=== PATIENT | female | born 1960 | race Caucasian/White ===

== ENCOUNTER 2018-03-19 14:06 | Inpatient (IN) ==
--- NOTE | 2018-03-19 14:20 | Emergency Department Note ---
Disposition Clinical Impression: Patellar fracture Qualifiers: Encounter type: initial encounter Fracture type: closed Fracture morphology: transverse Fracture alignment: nondisplaced Laterality: left Qualified Code(s): S82.035A - Nondisplaced transverse fracture of left patella, initial encounter for closed fracture Finger fracture, right Qualifiers: Encounter type: initial encounter Finger: little finger Fracture type: closed Phalanx: distal Fracture alignment: nondisplaced Qualified Code(s): S62.666A - Nondisplaced fracture of distal phalanx of right little finger, initial encounter for closed fracture Disposition: Admitted As Inpatient Condition: Good Time of Disposition: 17:05 General Adult HPI - General Stated complaint: Fall Lt Pain Time Seen by Provider: 03/19/18 14:08 Nursing Notes Reviewed: Yes Vital Signs Reviewed: Yes - History of Present Illness HPI Narrative: 57-year-old female presents emergency department with concern for fall. Patient slipped on ice and fell on her right wrist and hand and injured her left knee as well. Patient reports that she defecated on herself while she was lying on the pavement. She denies any new back pain. She does have chronic back pain. She states that she did not lose continence or stool. She reports that instead, it was because she could not get up with the pain in her left knee. Denies hitting her head. Denies any being on blood thinning medications. Denies any loss consciousness. - Related Data Home Medications Medication Instructions Recorded Confirmed Acetaminophen/Butalbital/Caffe 1 each PO Q6HR PRN 03/19/18 03/19/18 [Fioricet] Aspirin [Adult Aspirin] 81 mg PO DAILY 03/19/18 03/19/18 Escitalopram [Lexapro] 20 mg PO DAILY 03/19/18 03/19/18 Melatonin 5 mg PO HS 03/19/18 03/19/18 Ranitidine HCl [Zantac 75] 75 mg PO DAILY 03/19/18 03/19/18 Trimethoprim 100 mg PO DAILY 03/19/18 03/19/18 clonazePAM [Klonopin] 0.5 mg PO DAILY 03/19/18 03/19/18 Allergies Allergy/AdvReac Type Severity Reaction Status Date / Time Sulfa (Sulfonamide Allergy Rash Verified 03/19/18 20:24 Antibiotics) All systems ED: reviewed and negative except as stated. 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 Absent: respiratory distress, accessory muscle use - Cardiovascular Cardiovascular exam: Present: regular rate, normal rhythm, normal heart sounds - Abdominal Exam Abdominal exam: Present: soft, Non-Tender. Absent: distention, guarding, rebound, rigidity - Extremities Exam Extremities exam: Present: other (Right wrist has some tenderness to palpation on anterior aspect. (She has tenderness to palpation along the distal phalanx of the right fifth digit, neurovascular intact. On the left knee, there is tenderness to palpation along the patella. Neurovascular intact left lower extremity patient too uncomfortable to range.) - Back Exam Back exam: Present: full ROM. Absent: tenderness Course Vital Signs Temperature 98.3 F 03/19/18 14:19 Pulse Rate 79 03/19/18 14:19 Respiratory Rate 17 03/19/18 14:19 Blood Pressure 113/59 03/19/18 14:19 O2 Sat by Pulse Oximetry 100 03/19/18 14:19 Temperature 98.8 F 03/20/18 07:38 Pulse Rate 65 03/20/18 07:38 Respiratory Rate 16 03/20/18 07:38 Blood Pressure 111/69 03/20/18 07:38 O2 Sat by Pulse Oximetry 98 03/20/18 07:38 Oxygen Delivery Oxygen Delivery Room Air Medical Decision Making - MDM Narrative Medical decision making narrative: 57-year-old female presents emergency department after suffering a falling on ice today. Patient appears uncomfortable physical exam. We did provide her with pain medication. We did obtain plain films of the right wrist, right elbow, right fifth digit. Finger x-ray revealed nondisplaced fracture of the distal phalanx of the fifth digit. Patient was placed in a splint. Knee x-ray revealed mildly displaced acute transverse fracture across the mid left patella. Patient placed in knee immobilizer for this injury. I discussed discharge home versus admission to the hospital for pain management. Patient family requested that she stay in the hospital. We did attempt to have patient ambulate using crutches, but she was unable to do this. Her sister was very concerned that she has a very low pain tolerance and will not be able to tolerate this injury at home. Patient admitted to the hospitalist. She is to follow-up with orthopedic surgery on an outpatient basis. Finger X-Ray 03/19/18 00:00 IMPRESSION: 1. Nondisplaced fracture of the distal phalange of the 5th digit 2. No dislocation. No additional fracture identified. D/ / Paco Estrada MD / Paco Estrada MD Interpreting Provider: Paco Estrada MD Elbow X-Ray 03/19/18 14:20 IMPRESSION: No acute osseous abnormality. D/ / Paco Estrada MD / Paco Estrada MD Interpreting Provider: Paco Estrada MD Knee X-Ray 03/19/18 14:20 IMPRESSION: Mildly displaced acute transverse fracture across the mid left patella. D/ / Chung Azul / Chung Azul Interpreting Provider: Chung Azul Wrist X-Ray 03/19/18 14:20 IMPRESSION: 1. Nondisplaced fracture of the distal phalange of the 5th digit 2. No dislocation. No additional fracture identified. D/ / Paco Estrada MD / Paco Estrada MD Interpreting Provider: Paco Estrada MD Pelvis X-Ray 03/19/18 14:54 IMPRESSION: No acute osseous abnormality of the pelvis. D/ / Yosef Singh MD / Yosef Singh MD Interpreting Provider: Yosef Singh MD - Lab Data Result diagrams: 03/20/18 04:07 03/20/18 04:07 Attestation Statement - Attestation Attestation: I, Melvin Beard, examined this patient and my medical decision-making was reviewed with the BILINGUAL INTERPRETER/PA/Advanced Practice Nurse/Resident Physician. I agree with the documented findings, disposition and treatment plan as described except to the extent set forth below. 57 yo female presents with L knee pain. Pt reports she slipped and hit her L knee and R wrist. Pt denies fever, chills, cp, sob, palpitations. denies hitting her head or having LOC. unable to ambulate afterwards secondary to pain in knee. XR shows patellar fracture of L knee and R fifth finger. Patient did not receive a CT of her head because she denies hitting it or having loss of consciousness. She denied near syncopal symptoms. She was given multiple pain medications emergency department however she continued to have severe pain and was unable to ambulate. Patient will be admitted for pain control and placed in a rehabilitation facility
[2018-03-19] MEDS ORDERED: *HR* Morphine Immed Rel 30 MG TABLET PO STA (14:42)
[2018-03-19] MEDS ORDERED: *HR* FentaNYL (PF) 100 MCG/2 ML VIAL IVP ONE (18:24)
[2018-03-19] MEDS ORDERED: *HR* Heparin 5,000 UNIT/ML VIAL SQ ONE (22:07)
[2018-03-19] MEDS ORDERED: Acetaminophen 325 MG TABLET PO PRN (23:35)
[2018-03-19] MEDS ORDERED: Naloxone 0.4 MG/ML INJ IVP PRN (23:35)
[2018-03-19] MEDS ORDERED: *HR* HYDROcodone/Acet 5/325 mg TABLET PO PRN (23:35)
[2018-03-19] MEDS ORDERED: Acetaminophen/Butalbital/CaffeineTABLET PO PRN (23:37)
--- NOTE | 2018-03-20 02:18 | Internal Med History&Physical ---
Date of Encounter: 03/20/18 Time of Encounter: 23:00 Internal Medicine - H&P: HPI Chief complaint: s/p fall; knee injury Admitted From: Emergency Dept Plans for Post Hospital Care: Home History of present illness: Ms. Norwood is a 57 year old female who presents to the ER today with complaints of left knee pain and finger injury of her right hand. She apparently slipped and fell on the ice and landed on her knee and hand, injuring herself and fracturing her left knee. She was placed in a left knee immobilizer and admitted to hospitalist service for pain control and therapy assessment. Upon my assessment of the patient, she is lying in bed comfortably. She and her sister confirmed the above history. She denies any syncope, lightheadedness, dizziness, or chest pain. She was preparing to go to work when she went outside and slipped on the ice, sustaining her injury. She could not bear weight initially and has significant pain in her knee. She therefore was admitted. She denies any chronic health problems other than her anxiety, GERD, and recurrent UTI. Past Med Surg Social Fam HX - Past Medical History Attestation: Yes The following information was validated with the patient. Source: patient, obtained from family Medical history: GERD Additional medical history: recurrent UTI Psychiatric history: anxiety, depression - Past Surgical History Surgical History: , hysterectomy - Social History Smoking Status: Never smoker Smokeless Tobacco Status: No Alcohol use: none Drug use: none Occupational status: employed Current living situation: Home - Independent Activity Level: Independent ambulation Recent Out of Country Travel Within the Last 8 Weeks: No - Family History Mother Living Status: Cause of : cancer Hx Family Respiratory Disorders: Yes (asthma, COPD) Hx Family Cancer: Yes Father Living Status: Cause of : heart attack Hx Family Cardiac Disorders: Yes Sister Living Status: Still Living Hx Family Cancer: Yes Hx Family Musculoskeletal Disorders: Yes (DVT) Internal Medicine - H&P: Meds Acetaminophen/Butalbital/Caffe [Fioricet] 1 each PO Q6HR PRN 03/19/18 [History] Aspirin [Adult Aspirin] 81 mg PO DAILY 03/19/18 [History] Escitalopram [Lexapro] 20 mg PO DAILY 03/19/18 [History] Melatonin 5 mg PO HS 03/19/18 [History] Ranitidine HCl [Zantac 75] 75 mg PO DAILY 03/19/18 [History] Trimethoprim 100 mg PO DAILY 03/19/18 [History] clonazePAM [Klonopin] 0.5 mg PO DAILY 03/19/18 [History] Allergy/AdvReac Type Severity Reaction Status Date / Time Sulfa (Sulfonamide Allergy Rash Verified 03/19/18 20:24 Antibiotics) - Constitutional Constitutional: no chills, no fever(s), no weakness - EENT Eyes: no blurry vision, no change in vision Nose, mouth and throat: no nasal congestion, no sore throat - Cardiovascular Cardiovascular ROS IM: no chest pain, no diaphoresis, no dyspnea, no dyspnea on exertion, no irregular heart rhythm, no lightheadedness, no palpitations, no syncope - Respiratory Respiratory: no cough, no chest congestion - Gastrointestinal Gastrointestinal: no abdominal pain, no diarrhea, no vomiting - Genitourinary Genitourinary: no dysuria, no flank pain, no hematuria - Musculoskeletal Musculoskeletal ROS IM: arthralgias, joint swelling - Integumentary Integumentary IM: no rash, no jaundice - Neurological Neurological ROS: no dizziness, no focal weakness, no frequent falls, no headache(s) - Psychiatric Psychiatric: no anxiety, no depression - Endocrine Endocrine IM: no polydipsia, no polyuria - Allergic/Immunologic Allergic/Immunologic: no GI upset with certain foods - Constitutional Vitals: Temp Pulse Resp BP Pulse Ox 97.6 F 68 16 113/66 100 03/19/18 23:36 03/19/18 23:36 03/19/18 23:36 03/19/18 23:36 03/19/18 23:36 General appearance: Present: cooperative, A&O X 3, pleasant, answers questions appropriately Exam: see below - Head Head exam: Present: normal inspection - Eye Eye exam: Present: EOMI, PERRL. Absent: scleral icterus Pupils: Present: normal accommodation - ENT ENT exam: Present: normal exam, normal oropharynx - Neck Neck exam general surgery: Present: full ROM, supple. Absent: tenderness, nuchal rigidity, thyromegaly - Respiratory Respiratory exam: Present: CTAB. Absent: chest wall tenderness, rales, rhonchi, wheezes - Cardiovascular Cardiovascular exam: Present: RRR, +S1, +S2. Absent: diastolic murmur, systolic murmur - GI/Abdominal GI/Abdominal exam: Present: normal bowel sounds, soft. Absent: hepatomegaly, splenomegaly, tenderness - Extremities Exam Extremities exam: Present: joint swelling (left knee), normal capillary refill, warm, radial pulses palpable and symmetrical. Absent: calf tenderness, pedal edema Additional comments: left knee immobilized; right 5th digit in splint - Back Exam Back exam: Absent: CVA tenderness (L), CVA tenderness (R) - Neurological Exam Neurological exam: Present: alert, CN II-XII intact, oriented X3, no focal deficits - Psychiatric Psychiatric exam: Present: normal affect, normal mood - Skin Skin exam: Present: dry, intact, warm Internal Med - H&P Results - Impressions ITS Impressions Finger X-Ray 03/19/18 00:00 IMPRESSION: 1. Nondisplaced fracture of the distal phalange of the 5th digit 2. No dislocation. No additional fracture identified. D/ / Paco Estrada MD / Paco Estrada MD Interpreting Provider: Paco Estrada MD Elbow X-Ray 03/19/18 14:20 IMPRESSION: No acute osseous abnormality. D/ / Paco Estrada MD / Paco Estrada MD Interpreting Provider: Paco Estrada MD Knee X-Ray 03/19/18 14:20 IMPRESSION: Mildly displaced acute transverse fracture across the mid left patella. D/ / Chung Azul / Chung Azul Interpreting Provider: Chung Azul Wrist X-Ray 03/19/18 14:20 IMPRESSION: 1. Nondisplaced fracture of the distal phalange of the 5th digit 2. No dislocation. No additional fracture identified. D/ / Paco Estrada MD / Paco Estrada MD Interpreting Provider: Paco Estrada MD Pelvis X-Ray 03/19/18 14:54 IMPRESSION: No acute osseous abnormality of the pelvis. D/ / Yosef Singh MD / Yosef Singh MD Interpreting Provider: Yosef Singh MD - Diagnostic Studies Other Images Status: image reviewed by me (right finger x-ray and left knee xray) - Assessment and plan (1) Patellar fracture Current Visit: Yes Status: Acute Assessment and plan: 1. Will provide pain control. 2. Will consult PT and orthopedics for guidance. 3. Knee immobilizer per orthopedics. Qualifiers: Encounter type: initial encounter Fracture type: closed Fracture morphology: transverse Fracture alignment: nondisplaced Laterality: left Qualified Code(s): S82.035A - Nondisplaced transverse fracture of left patella, initial encounter for closed fracture (2) Finger fracture, right Current Visit: Yes Status: Acute Assessment and plan: 1. Finger splint. 2. Pain control as above. Qualifiers: Encounter type: initial encounter Finger: little finger Fracture type: closed Phalanx: distal Fracture alignment: nondisplaced Qualified Code(s): S62.666A - Nondisplaced fracture of distal phalanx of right little finger, initial encounter for closed fracture (3) DVT prophylaxis Current Visit: Yes Status: Acute Assessment and plan: 1. Heparin SQ. 2. Early ambulation. 3. Note: patient has history of PE ~ 30 years ago after /delivery; no DVT/PE since.
[2018-03-20 04:27] LABS: Basophils % 0.3 %; Eosinophils # 0.1 K/mcL (0.0-0.6); Eosinophils % 0.6 %; Hematocrit 37.7 % (35.3-44.9); Hemoglobin 12.4 g/dL (11.5-15.4); Immature Granulocytes % 0.4 % (0-4); Lymphocytes % 13.5 %; Mean Corpuscular HGB Conc 32.9 g/dL (31.6-35.5); Mean Corpuscular Volume 91.1 fL (83.0-100.0); Monocytes # 0.4 K/mcL (0.0-1.3); Monocytes % 5.5 %; Neutrophils # 6.1 K/mcL (1.6-8.9); Platelet Count 148 K/mcL (140-400); Red Blood Count 4.14 M/mcL (3.82-4.97); Red Cell Distribution Width 12.7 % (11.5-14.5); Segmented Neutrophils % 79.7 %
[2018-03-20 04:34] LABS: INR 1.1; Prothrombin Time 12.8 Seconds (9.4-12.1)
[2018-03-20 04:37] LABS: Activated Partial Thrombo Time 28.8 Seconds (26.0-36.0)
[2018-03-20 04:47] LABS: BUN/Creatinine Ratio 13 (6-26); Blood Urea Nitrogen 12 mg/dL (6-20); Carbon Dioxide 27 mEq/L (23-29); Chloride 106 mEq/L (98-107); Glucose 160 mg/dL (70-105); Magnesium 2.2 mg/dL (1.6-2.6); Osmolality,Calculated 293 (280-300); Potassium 3.8 mEq/L (3.5-5.1); Sodium 140 mEq/L (136-145); eGFR For Non-African Americans > 60 (> 60)
[2018-03-20] MEDS ORDERED: *HR* Heparin 5,000 UNIT/ML VIAL SQ SCH (06:00)
--- NOTE | 2018-03-20 07:36 | Orthopedic Consult Note ---
Date of Encounter: 03/20/18 Time of Encounter: 07:30 History of Present Illness HPI: Ms. Norwood is a 57 year old female Status post fall yesterday at home injuring right hand and left knee. Patient is resting comfortably, denies any head trauma denies any loss of consciousness. Right hand wrapped in splint did Refill. Left knee a knee brace neurovascularly intact positive swelling tender over patella X-rays reviewed minimally displaced right distal phalanx fracture fifth digit will allow Dr. Hawley to make the decision for the finger. Left displaced patella fracture recommendation open reduction internal fixation. Plan is for surgery today. We reviewed the risks and benefits as well as recovery. All questions were answered. The patient agreed to this treatment plan and acknowledged an understanding of the treatment plan as described. Past Med Surg Social Fam HX - Past Medical History Medical history: GERD Additional medical history: recurrent UTI Psychiatric history: anxiety, depression - Past Surgical History Surgical History: , hysterectomy - Social History Smoking Status: Never smoker Smokeless Tobacco Status: No Alcohol use: none Drug use: none - Family History Mother Living Status: Cause of : cancer Hx Family Respiratory Disorders: Yes (asthma, COPD) Hx Family Cancer: Yes Father Living Status: Cause of : heart attack Hx Family Cardiac Disorders: Yes Sister Living Status: Still Living Hx Family Cancer: Yes Hx Family Musculoskeletal Disorders: Yes (DVT) Medications and Allergies Acetaminophen/Butalbital/Caffe [Fioricet] 1 each PO Q6HR PRN 03/19/18 [History] Aspirin [Adult Aspirin] 81 mg PO DAILY 03/19/18 [History] Escitalopram [Lexapro] 20 mg PO DAILY 03/19/18 [History] Melatonin 5 mg PO HS 03/19/18 [History] Ranitidine HCl [Zantac 75] 75 mg PO DAILY 03/19/18 [History] Trimethoprim 100 mg PO DAILY 03/19/18 [History] clonazePAM [Klonopin] 0.5 mg PO DAILY 03/19/18 [History] Allergy/AdvReac Type Severity Reaction Status Date / Time Sulfa (Sulfonamide Allergy Rash Verified 03/19/18 20:24 Antibiotics) All Systems Reviewed: The remainder of the systems were reviewed and are negative Physical Exam - Constitutional Vitals: Temp Pulse Resp BP Pulse Ox 98.4 F 71 14 113/71 97 03/20/18 03:57 03/20/18 03:57 03/20/18 03:57 03/20/18 03:57 03/20/18 03:57 Results - Labs Result Diagrams: 03/20/18 04:07 03/20/18 04:07 Labs: Abnormal lab results PT 12.8 Seconds (9.4-12.1) H 03/20/18 04:07 Glucose 160 mg/dL (70-105) H 03/20/18 04:07 H & H 03/20/18 Range/Units 04:07 Hgb 12.4 (11.5-15.4) g/dL Hct 37.7 (35.3-44.9) % All other labs normal. Consult Discharge Plan - Plan Referrals: Kaylene Khan, [facility] [Primary Care Provider] -
[2018-03-20] MEDS ORDERED: (Trimethoprim [Trimethoprim] 100 MG) PO SCH (09:00)
[2018-03-20] MEDS ORDERED: Aspirin Enteric Coated 81 MG Tablet PO SCH (09:00)
[2018-03-20] MEDS ORDERED: Famotidine 20 MG TABLET PO SCH (09:00)
[2018-03-20] MEDS ORDERED: clonazePAM 0.5 MG TABLET PO SCH (09:00)
--- NOTE | 2018-03-20 09:42 | Event Note ---
Date of Encounter: 03/20/18 Time of Encounter: 09:39 Pt admitted earlier today with acute L displaced patella fracture and R distal phalanx fracture of nida digit R hand. She has been evaluated by orthopedics and is to go to OR today to repair patella. She is resting comfortably. Appreciate orthopedics input. Agree with assessment and plan as per H&P Pt appears low risk for surgery.
[2018-03-20] MEDS ORDERED: *HR* Propofol 200 MG/20 ML VIAL IVP ONE (12:48)
[2018-03-20] MEDS ORDERED: *HR* FentaNYL (PF) 100 MCG/2 ML VIAL ONE (12:48)
[2018-03-20] MEDS ORDERED: Dexamethasone 4 MG/ML VIAL ONE (12:48)
[2018-03-20] MEDS ORDERED: *HR* Succinylcholine 200 MG/10 ML VIAL IVP ONE (12:48)
[2018-03-20] MEDS ORDERED: Lidocaine -MPF 2% 2 ML VIAL ONE (12:48)
[2018-03-20] MEDS ORDERED: Lidocaine -MPF 4% 5 ML AMPUL ONE (12:48)
[2018-03-20] MEDS ORDERED: Ondansetron 4 MG/2 ML VIAL ONE (12:48)
[2018-03-20] MEDS ORDERED: *HR* Midazolam HCl 2 MG/2 ML VIAL ONE (12:48)
[2018-03-20] MEDS ORDERED: Propofol 500 MG/50 ML INFUS..BTL ONE (12:57)
[2018-03-20] MEDS ORDERED: Bupivacaine/Clonidine Syringe 1 EACH SYRINGE ONE (13:29)
[2018-03-20] MEDS ORDERED: ROPIVACAINE HCL/PF 0.5% 30 ML VIAL ONE (13:29)
--- NOTE | 2018-03-20 13:42 | Anesthesia Evaluation PreOp ---
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: Denies Any Significant HX Other Medical History: GERD, Other (Anxiety Depression) Anesthesia History: No Prior Anesthetic Complications Alcohol Use: none Drug use: none Medications and Allergies Acetaminophen/Butalbital/Caffe [Fioricet] 1 each PO Q6HR PRN 03/19/18 [History] Aspirin [Adult Aspirin] 81 mg PO DAILY 03/19/18 [History] Escitalopram [Lexapro] 20 mg PO DAILY 03/19/18 [History] Melatonin 5 mg PO HS 03/19/18 [History] Ranitidine HCl [Zantac 75] 75 mg PO DAILY 03/19/18 [History] Trimethoprim 100 mg PO DAILY 03/19/18 [History] clonazePAM [Klonopin] 0.5 mg PO DAILY 03/19/18 [History] Allergy/AdvReac Type Severity Reaction Status Date / Time Sulfa (Sulfonamide Allergy Rash Verified 03/19/18 20:24 Antibiotics) - Meds/Allergy Pre-op Review Medications Reviewed: Yes Allergies Reviewed: Yes Beta Blockers on Current Med List: No Anesthesia Results - Labs 03/20/18 04:07 03/20/18 04:07 Anesthesia Exam Vital Signs/O2 Sat/Glucose, Most Current Temp Pulse Resp BP Pulse Ox 03/20/18 11:23 98.4 F 66 14 107/59 98 Height: 5'4 Weight: 163 lbs NPO (# of Hours): MN Pain Scale: 0 - HEENT Pupil (Motor): Pupils equal, EOMI Mallampati: II Teeth: Normal Oral Opening: Greater than 3 - OCEANOGRAPHY PROFESSOR LOC: Oriented OCEANOGRAPHY PROFESSOR Motor: Normal RUE, Normal LUE, Normal RLE, Normal LLE, Normal Face OCEANOGRAPHY PROFESSOR Sensory: Normal: RUE, LUE, RLE, LLE, Face - Cardiac Rhythm: Regular Murmur: None JVD: No Carotid Bruit: No - Pulmonary Breath Sounds: bilateral Clear Respiratory Effort: Symmetrical Anesthesia Assess/Plan ASA Score: 2 Level of consciousness: Cooperative Anesthetic Plan: General, Regional Nerve Block Regional Nerve Block Plan: Femoral Autologous Blood: No Monitoring Plan: Standard Monitors Recovery Plan: PACU (Discussed GA, Femoral Block,agrees to proceed)
[2018-03-20] MEDS ORDERED: *HR* Promethazine 25 MG/ML VIAL IVP PRN (14:09)
[2018-03-20] MEDS ORDERED: *HR* OxyCODONE/APAP 5/325 TABLET PO PRN ×2 (14:09→17:38)
--- NOTE | 2018-03-20 14:09 | Anesthesia Procedures ---
Date of Encounter: 03/20/18 Time of Encounter: 13:45 Procedures: Anesthesia - Nerve Block Procedure Date: 03/20/18 Time: 13:45 Allergies/Adv Reactions: sulfa Pre-op Diagnosis: left patella fracture Surgical Procedure: left patella ORIF Checklist: Correct Patient Identifier, Correct procedure, History checked Correct side: Left Blood Thinner: No Monitor Applied: EKG, BP, Pulse Oximetry Supplemental Oxygen via Nasal Cannula (L/min): 2 Sedation: Versed (mg): 2 Sedation: Fentanyl (mcg): 100 Indication: Post Op Analgesia Pre-op Neuro Deficits: No Block Type: Femoral Catheter placed: No Sterile Technique: Yes Ultrasound used: Yes Anatomy identified: Yes Visual spread of Local: Yes Neuro Stimulation: Yes Nerve Stimulator Range: 0.2 - 0.4 mA Blood on Needle Aspiration: No Smooth Injection of Local: Yes Pain with Injection of Local: No Prep: Chlorhexadine Needle: 21 x 100 mm Stimuplex Local: Ropivacaine (0.5% WITH 8 MG DECADRON ) Volume (cc): 30 Number of Attempts: 1 Complications: None/effective block Vitals: Vital Signs - Last 8 Hours Temp Pulse Resp BP Pulse Ox 03/20/18 13:58 59 16 117/63 100 03/20/18 13:40 58 16 134/70 100 03/20/18 11:23 98.4 F 66 14 107/59 98 03/20/18 07:38 98.8 F 65 16 111/69 98 Intake and Output 03/19/18 03/20/18 03/20/18 23:59 07:59 15:59 Intake Total 0 / 0 150 / 150 Output Total 0 / 0 0 / 0 Balance 0 / 0 150 / 150 Intake: Oral 0 / 0 150 / 150 Output: Urine 0 / 0 0 / 0 Other: # Voids 1 Weight 73.26 kg 74.18 kg Patient Weight 03/20/18 23:59 Weight 74.18 kg
[2018-03-20] MEDS ORDERED: *HR* PHENYLEPHRINE 1,000 MCG/10 ML SYRINGE IVP ONE (15:26)
--- NOTE | 2018-03-20 15:57 | Orthopedic Operative Note ---
Date of procedure: 03/20/18 Pre-op diagnosis: left displaced patella fracture Post-op diagnosis: same Procedure: Procedure: Left Patella ORIF lateral Estimated blood loss: 25 cc Procedural Notes: Displaced patella fracture Operative procedure: The patient was brought to the operating room and placed on the operating room table. After general anesthesia was administered the operative knee was examined. Findings were noted in the exam under anesthesia. The operative extremity was prepped and draped in sterile surgical fashion. The patient received IV antibiotics prior to skin incision. A standard midline incision was made centered over the patella. The incision was made through the skin and subcutaneous tissue. The fracture site was identified, fracture hematoma was evacuated. Patient had 2 large fragments, there were reduced and held with the bone-holding forceps. The fracture was transverse with 2 drill holes through the patella superior and inferior through each drill hole was passed a looped #5 FiberWire suture and one end of the #5 FiberWire suture fi xation was accomplished with the 2 #5 FiberWire suture and longitudinal fixation, and then a [id number] #5 FiberWire suture. Palpation of the joint revealed excellent fixation. The wound was irrigated and the retinaculum was repaired with interrupted [id number] #2 FiberWire suture. The subcutaneous tissues irrigated and closed deep with #1 PDS suture superficially with 0 PDS suture and skin was closed with Dermabond. Patient was placed in a sterile dressing postoperative brace. The patient was then extubated and transferred to the recovery room in stable condition. Anesthesia: GETA Surgeon: David Dasilva Was there an assistant basketball coach present: No Estimated blood loss (cc): 25 Condition: stable Disposition: PACU
[2018-03-20 16:29] LABS: Hematocrit 38.1 % (35.3-44.9)
--- NOTE | 2018-03-20 17:06 | Anesthesia Evaluation Post Op ---
Date of Encounter: 03/20/18 Time of Encounter: 16:30 - Vital Signs Vital Signs: Vital Signs/O2 Sat/Glucose, Most Current Temp Pulse Resp BP Pulse Ox 03/20/18 16:47 97.6 F 80 14 110/67 94 03/20/18 16:30 97.2 F L 82 16 114/65 97 03/20/18 16:20 86 16 120/62 100 03/20/18 16:10 87 16 126/67 100 03/20/18 16:00 97.0 F L 80 16 119/69 100 03/20/18 13:58 59 16 117/63 100 03/20/18 13:40 58 16 134/70 100 - Lungs Lungs: Clear Ascult./Percussion - Airway Airway: Non-obstructed - Cardiovascular Regular Rate - Mental Status Mental Status: Alert & Oriented, Answers Appropriately - Pain Pain Scale: 0 - Nausea Vomiting Nausea Vomiting: Not Present - Hydration Hydration: Ice chips - Discharge PostOp Status: Transfer Patient to floor
[2018-03-20] MEDS ORDERED: Sennosides 8.6 MG TABLET PO PRN (17:38)
[2018-03-20] MEDS ORDERED: *HR* HYDROcodone/Acet 5/325 mg TABLET PO PRN (17:38)
[2018-03-20] MEDS ORDERED: Ondansetron 4 MG/2 ML VIAL IVP PRN (17:38)
[2018-03-20] MEDS ORDERED: Naloxone 0.4 MG/ML INJ IVP PRN (17:38)
[2018-03-20] MEDS ORDERED: Temazepam 15 MG CAPSULE PO PRN (17:38)
[2018-03-20] MEDS ORDERED: MOM Conc 10 ML UD.LIQ PO PRN (17:38)
[2018-03-20] MEDS ORDERED: Acetaminophen/Butalbital/CaffeineTABLET PO PRN (17:38)
[2018-03-20] MEDS: *HR* Heparin 5,000 UNIT/ML VIAL SQ SCH (18:12)
[2018-03-20] MEDS: Ringers Solution, Lactated 1,000 ML IVC SCH (19:45)
[2018-03-20] MEDS: Acetaminophen 325 MG TABLET PO PRN (23:13)
[2018-03-21] MEDS: *HR* Heparin 5,000 UNIT/ML VIAL SQ SCH ×2 (05:37→17:44)
[2018-03-21] MEDS: Ringers Solution, Lactated 1,000 ML IVC SCH ×2 (05:43→20:25)
[2018-03-21 06:22] LABS: Hematocrit 34.9 % (35.3-44.9); Hemoglobin 11.1 g/dL (11.5-15.4)
[2018-03-21] MEDS: Aspirin Enteric Coated 81 MG Tablet PO SCH (09:23)
[2018-03-21] MEDS: clonazePAM 0.5 MG TABLET PO SCH (09:23)
[2018-03-21] MEDS: Famotidine 20 MG TABLET PO SCH (09:24)
--- NOTE | 2018-03-21 10:08 | Physician Discharge Referral ---
Home Health/Hosp Referral Info Transfer to: Home Health Provider in Charge Post Discharge: PCP - Diagnosis (1) Patellar fracture Priority: Primary Status: Acute (2) Finger fracture, right Priority: Secondary Status: Acute - Respiratory Orders None Smoking Cessation: Smoking cessation has been advised. For more information, call the [place] Tobacco Quit Line at 5-782-DDRL-NOW. - Dressing/Wound Care Type of Dressing/Treatments w/Frequency: See ortho orders - Diet/Nutrition Diet/Nutrition Orders: Regular - Activity Activity Orders: Up ad axel (Activity per ortho -) - Services Needed Following services are medically necessary services: Nursing, Physical Therapy, Occupational Therapy - Transfer Medications Home Medications: Acetaminophen/Butalbital/Caffe [Fioricet] 1 each PO Q6HR PRN 03/19/18 [History] Aspirin [Adult Aspirin] 81 mg PO DAILY 03/19/18 [History] Escitalopram [Lexapro] 20 mg PO DAILY 03/19/18 [History] Melatonin 5 mg PO HS 03/19/18 [History] Ranitidine HCl [Zantac 75] 75 mg PO DAILY 03/19/18 [History] Trimethoprim 100 mg PO DAILY 03/19/18 [History] clonazePAM [Klonopin] 0.5 mg PO DAILY 03/19/18 [History] Allergies/Adverse Reactions: Allergy/AdvReac Type Severity Reaction Status Date / Time Sulfa (Sulfonamide Allergy Rash Verified 03/19/18 20:24 Antibiotics) Certification: Further, I certify that my clinical findings support that this patient is homebound (i.e. absences from home require considerable and taxing effort and are for medical reasons or buddhism services or infrequently or short duration when for other reasons) because: Homebound Reason: Patient requires assistance of a person or device to safely leave home, Absences from home are contraindicated except to recieve medical care, Post-surgery restriction and or conditions limit ability to leave home Attestation: My signature below is to certify that this patient is under my care and that I, or nurse practitioner, or a physician's assistant district attorney working with me, has a [id number] encounter with this patient.
[2018-03-21] MEDS: Loratadine 10 MG TABLET PO SCH (11:01)
--- NOTE | 2018-03-21 15:11 | Orthopedics Progress Note ---
Date of Encounter: 03/21/18 Time of Encounter: 15:09 Subjective Principal diagnosis: Left knee patella fracture and small finger fracture Interval history: Patient is doing well without new complaints Right hand: Full finger splint in place at small finger Left knee: Hinged knee brace is intact locked in extension. Wound is clean dry intact, minimal swelling Bilateral calves are soft and nontender Grossly neurovascularly intact Postoperative day #1 status post left patella ORIF via tension banding Right small finger nondisplaced P3 fracture Plan: No range of motion of the knee, continue and immobilizer DVT prophylaxis Hospital outpatient OT/PT Continue splint on small finger Objective Vital signs: Vital Signs Temp Pulse Resp BP Pulse Ox 03/21/18 10:54 97.8 F 83 16 97/59 100 03/21/18 07:16 98.1 F 60 14 127/71 98 03/21/18 04:25 98.6 F 68 14 126/74 96 03/21/18 00:09 98.7 F 69 14 123/68 98 03/20/18 19:50 98.1 F 69 14 108/64 98 03/20/18 18:53 98.6 F 67 12 113/67 99 03/20/18 18:09 97.9 F 69 14 104/64 97 03/20/18 17:11 74 12 113/72 95 03/20/18 16:47 97.6 F 80 14 110/67 94 03/20/18 16:30 97.2 F L 82 16 114/65 97 03/20/18 16:20 86 16 120/62 100 03/20/18 16:10 87 16 126/67 100 03/20/18 16:00 97.0 F L 80 16 119/69 100 Intake and Output 03/20/18 03/21/18 03/21/18 23:59 07:59 15:59 Intake Total 100 / 100 120 / 120 Output Total 25 / 25 Balance 75 / 75 120 / 120 Intake: IV Fluids 100 / 100 Ancef 2,000 MG In 0.9 % Sodium 100 / 100 Chloride 100 ML @ 200 mls/hr IVPB Q8H [facility] Rx#:[id number] Oral 120 / 120 Output: Estimated Blood Loss 25 / 25 Other: Meal Breakfast Percent of Meal Consumed 70% # Voids 1 Weight 74.18 kg Patient Weight 03/21/18 23:59 Weight 74.18 kg - Labs CBC & BMP: 03/21/18 05:53 03/20/18 04:07 Labs: Abnormal lab results Hgb 11.1 g/dL (11.5-15.4) L 03/21/18 05:53 Hct 34.9 % (35.3-44.9) L 03/21/18 05:53 PT 12.8 Seconds (9.4-12.1) H 03/20/18 04:07 Glucose 160 mg/dL (70-105) H 03/20/18 04:07 Consult Discharge Plan - Plan Referrals: Kaylene Khan, [employer] [Primary Care Provider] -
--- NOTE | 2018-03-21 17:56 | Internal Med Progress Note ---
Hospitalist Progress Note - Encounter Date of Encounter: 03/21/18 Time of Encounter: 09:40 - Subjective Interval History: Ms Norwood is currently admitted for fall with fracture of L patella. She is s/p ORIF. She remains moderate to high risk due to potential for worsening clinical status. Ms Norwood is doing OK post op. She is not having significant pain. No fever or chills. Tolerating diet. Just seen by PT/OT - Exam Vitals: Temp Pulse Resp BP Pulse Ox 98.0 F 69 16 104/61 99 03/21/18 16:04 03/21/18 16:04 03/21/18 16:04 03/21/18 16:04 03/21/18 16:04 Exam: Gen: Alert and oriented. Comfortable in chair. H: Normocephalic EENT: Mucus membranes moist Heart reg and not tachy Lungs clear bilaterally Abd soft and nontender Ext - in immobilizer No rash - Assessment and Plan (1) Patellar fracture Current Visit: Yes Status: Acute Assessment and Plan: Pt with acute patellar fracture. Now s/p ORIF. PT/OT evals for discharge planning. (2) Finger fracture, right Current Visit: Yes Status: Acute Assessment and Plan: Continue splint and pain control. - Time Spent with Patient Total time spent is greater than 50% in coordination of care (as documented) at patient's floor/unit and/or counseling patient: Internal Medicine: Result - Labs CBC & Chem 7: 03/21/18 05:53 03/20/18 04:07 Labs: Short CBC 03/21/18 Range/Units 05:53 Hgb 11.1 L (11.5-15.4) g/dL Hct 34.9 L (35.3-44.9) % - ABG Interpretation ABG results: PT/INR, D-dimer PT 12.8 Seconds (9.4-12.1) H 03/20/18 04:07 Consult Discharge Plan - Plan Referrals: Kaylene Khan, [employer] [Primary Care Provider] - ____ (1) Patellar fracture Qualifiers: Encounter type: subsequent encounter Fracture type: closed Fracture morphology: transverse Fracture alignment: nondisplaced Laterality: left Fracture healing: with routine healing Qualified Code(s): S82.035D - Nondisplaced transverse fracture of left patella, subsequent encounter for closed fracture with routine healing (2) Finger fracture, right Qualifiers: Encounter type: subsequent encounter Finger: little finger Fracture type: closed Phalanx: distal Fracture alignment: nondisplaced Fracture healing: with routine healing Qualified Code(s): S62.666D - Nondisplaced fracture of distal phalanx of right little finger, subsequent encounter for fracture with routine healing
[2018-03-22 04:45] LABS: Hematocrit 29.3 % (35.3-44.9)
[2018-03-22 04:48] LABS: Hemoglobin 9.5 g/dL (11.5-15.4)
[2018-03-22] MEDS: *HR* Heparin 5,000 UNIT/ML VIAL SQ SCH (05:46)
--- NOTE | 2018-03-22 06:56 | Orthopedics Progress Note ---
Date of Encounter: 03/22/18 Time of Encounter: 06:55 Subjective Principal diagnosis: Left knee patella fracture and small finger fracture Interval history: Patient was seen this morning doing well without complaints. Afebrile vital signs stable. Operative extremity: Neurovascularly intact Dressing clean dry and intact Calves nontender Assessment and plan: Continue with postoperative care Objective Vital signs: Vital Signs Temp Pulse Resp BP Pulse Ox 03/22/18 03:55 98.3 F 69 17 115/65 97 03/21/18 23:40 98.2 F 72 17 112/62 96 03/21/18 20:26 98 03/21/18 19:15 98.2 F 76 18 95/54 98 03/21/18 16:04 98.0 F 69 16 104/61 99 03/21/18 10:54 97.8 F 83 16 97/59 100 03/21/18 07:16 98.1 F 60 14 127/71 98 Intake and Output 03/21/18 03/21/18 03/22/18 15:59 23:59 07:59 Intake Total 360 / 360 Balance 360 / 360 Intake: Oral 360 / 360 Other: Meal Lunch Percent of Meal Consumed 50% # Voids 1 Weight 72.9 kg Patient Weight 03/22/18 23:59 Weight 72.9 kg - Labs CBC & BMP: 03/22/18 04:01 03/20/18 04:07 Labs: Abnormal lab results Hgb 9.5 g/dL (11.5-15.4) L D 03/22/18 04:01 Hct 29.3 % (35.3-44.9) L 03/22/18 04:01 PT 12.8 Seconds (9.4-12.1) H 03/20/18 04:07 Glucose 160 mg/dL (70-105) H 03/20/18 04:07 Consult Discharge Plan - Plan Referrals: Kaylene Khan, [employer] [Primary Care Provider] -
[2018-03-22] MEDS: clonazePAM 0.5 MG TABLET PO SCH (09:18)
[2018-03-22] MEDS: Aspirin Enteric Coated 81 MG Tablet PO SCH (09:18)
[2018-03-22] MEDS: Loratadine 10 MG TABLET PO SCH (09:18)
[2018-03-22] MEDS: Famotidine 20 MG TABLET PO SCH (09:18)
--- NOTE | 2018-03-22 10:06 | Discharge Summary ---
<Sedrick Youssef - Last Filed: 03/22/18 12:52> - NOTES TO OUTPATIENT PROVIDER Notes to Outpatient Provider: Ms Norwood was admitted for left patella and right fifth finger fracture after slipping on ice. Orthopedics was consulted and performed ORIF on the patella and splint on finger. ORIF went well withut c omplications. Patient is to be discharged in stable condition to home with home health for PTOT. Discharged with 7 days Bliss and bowel regimen. Orders not resulted at time of discharge: Pending orders 03/20/18 13:39 US anesthesia pain block [US] Routine Date of Encounter: 03/22/18 Time of Encounter: 10:04 - Discharge Diagnosis (1) Patellar fracture Priority: Primary Status: Acute Assessment and Plan: Pt with acute patellar fracture. Now s/p ORIF. PT/OT evaluated and recommended inpatient rehab, however patient elected home health care. She is stable for discharge with home health care PT/OT. Qualifiers: Encounter type: subsequent encounter Fracture type: closed Fracture morphology: transverse Fracture alignment: nondisplaced Laterality: left Fracture healing: with routine healing Qualified Code(s): S82.035D - Nondisplaced transverse fracture of left patella, subsequent encounter for closed fracture with routine healing (2) Finger fracture, right Priority: Secondary Status: Acute Assessment and Plan: Continue splint and pain control. Stable for discharge and home health/outpatient management Qualifiers: Encounter type: subsequent encounter Finger: little finger Fracture type: closed Phalanx: distal Fracture alignment: nondisplaced Fracture healing: with routine healing Qualified Code(s): S62.666D - Nondisplaced fracture of distal phalanx of right little finger, subsequent encounter for fracture with routine healing Hospital course: Ms. Norwood is a 57 year old female who presented to [facility] ED 03/19/18 for left knee and right hand pain secondary to slip on ice. Patient was placed in knee immobilizer. Imaging revealed left patellar fracture and right fifth finger fracture. Orhtopedics was consulted. Patient was put in finger splint and scheduled fro ORIF of left patella. ORIF was performed 03/20 without incident. Patient tolerated procedure well. 03/21 was post surgical care and PT/OT assessment. Patient was recommended inpatient rehab but elected home health care. She will be discharged 03/22 in a stable condition with home health care PT/OT, 7 days Bliss, 7 days bowel regimen, home meds. Discharge discussed with: patient, family, social work - Time Spent with Patient Total time spent providing and/or coordinating discharge services: - Discharge Medications Prescriptions: RX: HYDROcodone/Acet 5/325 mg [Bliss 5-325 mg] 1 tab PO Q6HR PRN 7 Days #28 tablet PRN Reason: Moderate Pain RX: Docusate [Colace] 100 mg PO BID 7 Days #14 capsule RX: MOM Conc [MILK OF MAGNESIA conc] 5 ml PO HS PRN 6 Days #3 ud.liq PRN Reason: Constipation Home Medications: RX: Acetaminophen/Butalbital/Caffe [Fioricet] 1 each PO Q6HR PRN 03/19/18 [History] RX: Aspirin [Adult Aspirin] 81 mg PO DAILY 03/19/18 [History] RX: Escitalopram [Lexapro] 20 mg PO DAILY 03/19/18 [History] RX: Melatonin 5 mg PO HS 03/19/18 [History] RX: Ranitidine HCl [Zantac 75] 75 mg PO DAILY 03/19/18 [History] RX: Trimethoprim 100 mg PO DAILY 03/19/18 [History] RX: clonazePAM [Klonopin] 0.5 mg PO DAILY 03/19/18 [History] RX: Docusate [Colace] 100 mg PO BID 7 Days #14 capsule 03/22/18 [Rx] RX: HYDROcodone/Acet 5/325 mg [Bliss 5-325 mg] 1 tab PO Q6HR PRN 7 Days #28 tablet 03/22/18 [Rx] RX: MOM Conc [MILK OF MAGNESIA conc] 5 ml PO HS PRN 6 Days #3 ud.liq 03/22/18 [Rx] Allergies/Adverse Reactions: Allergy/AdvReac Type Severity Reaction Status Date / Time Sulfa (Sulfonamide Allergy Rash Verified 03/19/18 20:24 Antibiotics) Date of admission: 03/20/18 10:25 Primary care physician: Kaylene Khan CNP Consults: 03/19/18 21:26 Consult to Orthopedic Surgery [CONS] Stat Consulting Provider: Yasmany Marrufo Reason for Consult: Patellar fracture Call Completed: Yes 03/20/18 17:38 Consult to Occupational Therapy [CONS] Routine Comment: Evaluate, develop and implement POC Reason for Consult: post knee surgery Does patient have active BEDREST order?: No Is patient medically & hemodynamically stable?: Yes Consult to Orthopedic Navigator [CONS] [CONS] Routine Consult to Physical Therapy [CONS] Routine Comment: Evaluate, develop and impliment POC Reason for Consult: post knee surgery Does patient have active BEDREST order?: No Is patient medically & hemodynamically stable?: Yes Consult to Concrete [employer] Plant Supervisor [CONS] Routine Reason for SW Consult: post op joint replacement RT Post Op Consult [CONS] Routine Discharging clinician: Sedrick Youssef Anticipated date of discharge: 03/22/18 - Constitutional Vitals: Temp Pulse Resp BP Pulse Ox 97.7 F 65 16 107/69 99 03/22/18 08:00 03/22/18 08:00 03/22/18 08:00 03/22/18 08:00 03/22/18 08:00 General appearance: Present: cooperative, A&O X 3, pleasant, answers questions appropriately Exam: Gen: Alert and oriented. Comfortable in bed. H: Normocephalic EENT: Mucus membranes moist Heart reg and not tachy Lungs clear bilaterally Abd soft and nontender Ext - in immobilizer, sensation, motor, pulses intact in distal LLE. Bandages on L knee clean/dry/intact No rash - Patient Status Disposition: Home Health Service Condition: Good Functional capacity at discharge: uses cane/walker Overall status at discharge: patient is progressing back to baseline - Discharge Instructions Instructions: Hydrocodone/Acetaminophen (By mouth), Laxative, Stool Softeners (By mouth), Magnesium Hydroxide (By mouth), Finger Fracture (DC) Follow Up With: David Dasilva MD [Partnered Physician] - 03/30/18 10:40 am Additional Instructions: No motion to left knee Wear brace immobilizer on left lower extremity at all times Continue splint to right fifth digit - Diet and Activity Activity: as per physical therapy Diet: advance to your usual diet <Kulwinder Cabello - Last Filed: 03/22/18 20:15> Orders not resulted at time of discharge: Pending orders 03/20/18 13:39 US anesthesia pain block [US] Routine Date of Encounter: 03/22/18 - Discharge Diagnosis (1) Patellar fracture Status: Acute Qualifiers: Encounter type: subsequent encounter Fracture type: closed Fracture morphology: transverse Fracture alignment: nondisplaced Laterality: left Fracture healing: with routine healing Qualified Code(s): S82.035D - Nondisplaced transverse fracture of left patella, subsequent encounter for closed fracture with routine healing (2) Finger fracture, right Status: Acute Qualifiers: Encounter type: subsequent encounter Finger: little finger Fracture type: closed Phalanx: distal Fracture alignment: nondisplaced Fracture healing: with routine healing Qualified Code(s): S62.666D - Nondisplaced fracture of distal phalanx of right little finger, subsequent encounter for fracture with routine healing Hospital course: Ms. Norwood is a 57 year old female - Time Spent with Patient Total time spent providing and/or coordinating discharge services: 38min Date of admission: 03/20/18 10:25 Primary care physician: Kaylene Khan CNP Consults: 03/19/18 21:26 Consult to Orthopedic Surgery [CONS] Stat Consulting Provider: Yasmany Marrufo Reason for Consult: Patellar fracture Call Completed: Yes 03/20/18 17:38 Consult to Occupational Therapy [CONS] Routine Comment: Evaluate, develop and implement POC Reason for Consult: post knee surgery Does patient have active BEDREST order?: No Is patient medically & hemodynamically stable?: Yes Consult to Orthopedic Navigator [CONS] [CONS] Routine Consult to Physical Therapy [CONS] Routine Comment: Evaluate, develop and impliment POC Reason for Consult: post knee surgery Does patient have active BEDREST order?: No Is patient medically & hemodynamically stable?: Yes Consult to Con[employer] Plant Supervisor [CONS] Routine Reason for SW Consult: post op joint replacement RT Post Op Consult [CONS] Routine - Constitutional Vitals: Temp Pulse Resp BP Pulse Ox 98.4 F 74 16 100/55 100 03/22/18 12:00 03/22/18 12:00 03/22/18 12:00 03/22/18 12:00 03/22/18 12:00 - Attending Attestation I examined this patient and my medical decision-making was reviewed with the Resident Physician on 03/22/18. I agree with the documented findings, disposition and treatment plan as described except to the extent set forth elian w. Ms Norwood has been admitted for fracture L patella and finger following a fall on ice. She went to OR and had repair of patella. She is now afebrile and ready for discharge home with C. Exam alert Comfortable Mucus membranes dry Heart reg No wheeze abd soft Plan D/C home with C
[2018-03-22] MEDS: Acetaminophen 325 MG TABLET PO PRN (11:35)
[2018-03-22 12:55] VITALS: BP 100/55
== END 2018-03-22 13:45 | disposition home health service (06) | DRG 517 ==
LOC: 3NENU 14:06 → EMEROOARM 14:06 → SUATTDRO 18:42 → 3NENU 20:14
PROVIDERS: ADMIT Internal Medicine; ATTEND Internal Medicine

== ENCOUNTER 2018-11-22 14:38 | Observation (INO) ==
[2018-11-22 14:58] LABS: Hematocrit 42.6 % (35.3-44.9); Hemoglobin 13.6 g/dL (11.5-15.4); Mean Corpuscular HGB Conc 31.9 g/dL (31.6-35.5); Mean Corpuscular Hemoglobin 29.6 pg (28.0-33.3); Mean Corpuscular Volume 92.8 fL (83.0-100.0); Mean Platelet Volume 10.3 fL (9.4-12.4); Platelet Count 181 K/mcL (140-400); Red Blood Count 4.59 M/mcL (3.82-4.97); Red Cell Distribution Width 12.6 % (11.5-14.5); White Blood Count 7.1 K/mcL (4.3-11.1)
[2018-11-22 15:07] LABS: INR 1.1; Prothrombin Time 12.1 Seconds (9.4-12.1)
[2018-11-22 15:09] LABS: Activated Partial Thrombo Time 30.1 Seconds (26.0-36.0)
[2018-11-22] MEDS ORDERED: Aspirin 81 MG TAB.CHEW PO ONE (15:52)
[2018-11-22 15:55] LABS: Troponin I < 0.03 ng/mL (< 0.04)
[2018-11-22 16:07] LABS: Alanine Aminotransferase 26 Units/L (7-52); Albumin 4.6 g/dL (3.5-5.7); Albumin/Globulin Ratio 1.5 (1.1-2.2); Alkaline Phosphatase 88 Units/L (34-104); Aspartate Amino Transferase 22 Units/L (13-39); BUN/Creatinine Ratio 13 (6-26); Bilirubin,Direct 0.2 mg/dL (0.0-0.2); Bilirubin,Indirect 1.5 mg/dL (0.0-1.2); Bilirubin,Total 1.7 mg/dL (0.3-1.0); Blood Urea Nitrogen 12 mg/dL (8-23); Calcium 9.8 mg/dL (8.6-10.3); Carbon Dioxide 18 mEq/L (23-29); Chloride 102 mEq/L (98-107); Ethanol < 10 mg/dL (Less than 10); Glucose 113 mg/dL (70-105); Osmolality,Calculated 287 (280-300); Potassium 3.4 mEq/L (3.5-5.1); Sodium 138 mEq/L (136-145); Total Protein 7.6 g/dL (6.4-8.9); eGFR For African Americans > 60 (> 60); eGFR For Non-African Americans > 60 (> 60)
[2018-11-22 16:12] LABS: Bilirubin,Urine Negative (Negative); Blood,Urine Negative (Negative); Clarity,Urine Clear (Clear); Color,Urine Yellow (Yellow); Glucose,Urine (UA) Normal (Normal); Ketones,Urine 40 mg/dL (Negative); Leukocyte Esterase,Urine Negative (Negative); Nitrite,Urine Negative (Negative); PH,Urine 8.5 pH Units (5.0-8.0); Protein,Urine 30 mg/dL (Neg-Trace); Specific Gravity,Urine 1.022 (1.010-1.025); Urobilinogen,Urine Normal (Normal)
[2018-11-22] MEDS ORDERED: Potassium Chloride Elixir 20 MEQ/15 ML UDC PO ONE (16:12)
[2018-11-22 16:14] LABS: Bacteria,Urine None Seen per hpf (None-Few); Hyaline Casts,Urine None Seen per lpf (None-Few); Squamous Epithelial Cell,Urine Moderate per lpf (None-Few); WBC,Urine 0-3 per hpf (0-3)
[2018-11-22 16:18] LABS: Amphetamine Screen,Urine Negative ng/mL (Cutoff=1000); Barbiturate Screen,Urine Negative ng/mL (Cutoff=200); Benzodiazepines Screen,Urine Negative ng/mL (Cutoff=200); Cannabinoid Screen,Urine Negative ng/mL (Cutoff = 50); Cocaine Screen,Urine Negative ng/mL (Cutoff= 300); Opiate Screen,Urine Negative ng/mL (Cutoff=300); Phencyclidine Screen,Urine Negative ng/mL (Cutoff=25)
[2018-11-22] MEDS ORDERED: *HR* Dextrose 50 % in Water (Syg) 50 ML SYRINGE IVP PRN (16:32)
[2018-11-22] MEDS ORDERED: Ondansetron 4 MG/2 ML VIAL IVP PRN (16:32)
[2018-11-22] MEDS ORDERED: Naloxone 0.4 MG/ML INJ IVP PRN (16:32)
[2018-11-22] MEDS ORDERED: D5% in Water 1,000 ML IVC PRN (16:32)
[2018-11-22] MEDS ORDERED: Dextrose Gel 15 GM/37.5 ML TUBE PO PRN ×2 (16:32)
[2018-11-22 17:10] LABS: Chol/HDL Ratio 5.9 (0-4.9); Cholesterol 223 mg/dL (< 200); HDL Cholesterol 38 mg/dL (40-59); LDL Cholesterol,Calculated 156 mg/dL (0-99); Triglycerides 146 mg/dL (< 150)
[2018-11-22 18:10] LABS: VBG HCO3 19 mEq/L (21-27); VBG PCO2 26 mmHg (41-51); VBG PH 7.46 pH Units (7.32-7.42); VBG PO2 54 mmHg (25-50)
[2018-11-22 18:27] LABS: Estimated Average Glucose 126 mg/dl; Ethanol < 10 mg/dL (Less than 10)
[2018-11-22 18:30] LABS: Chol/HDL Ratio 5.9 (0-4.9)
[2018-11-22 18:42] LABS: Thyroid Stimulating Hormone 1.327 mcIU/mL (0.340-5.600)
[2018-11-22] MEDS ORDERED: *HR* LORazepam 2 MG/ML VIAL IVP ONE (21:00)
[2018-11-22] MEDS ORDERED: clonazePAM 0.5 MG TABLET PO ONE (22:24)
[2018-11-22] MEDS ORDERED: SUMAtriptan succinate 50 MG TABLET PO ONE (23:59)
[2018-11-23] MEDS ORDERED: Acetaminophen 325 MG TABLET PO ONE (02:49)
[2018-11-23 02:57] LABS: VBG HCO3 19 mEq/L (21-27); VBG PCO2 32 mmHg (41-51); VBG PO2 130 mmHg (25-50)
[2018-11-23 03:01] LABS: Basophils % 0.2 %; Hematocrit 37.7 % (35.3-44.9); Hemoglobin 12.1 g/dL (11.5-15.4); Immature Granulocytes % 0.5 % (0-4); Lymphocytes # 0.8 K/mcL (0.6-4.6); Lymphocytes % 13.7 %; Mean Corpuscular HGB Conc 32.1 g/dL (31.6-35.5); Mean Corpuscular Hemoglobin 30.2 pg (28.0-33.3); Mean Platelet Volume 11.1 fL (9.4-12.4); Monocytes # 0.4 K/mcL (0.0-1.3); Monocytes % 6.4 %; Neutrophils # 4.4 K/mcL (1.6-8.9); Platelet Count 110 K/mcL (140-400); Red Blood Count 4.01 M/mcL (3.82-4.97); Red Cell Distribution Width 12.8 % (11.5-14.5); Segmented Neutrophils % 79.2 %; White Blood Count 5.6 K/mcL (4.3-11.1)
[2018-11-23 03:10] LABS: BUN/Creatinine Ratio 11 (6-26); Blood Urea Nitrogen 11 mg/dL (8-23); Carbon Dioxide 22 mEq/L (23-29); Chloride 106 mEq/L (98-107); Glucose 114 mg/dL (70-105); Osmolality,Calculated 288 (280-300); Potassium 3.8 mEq/L (3.5-5.1); Sodium 139 mEq/L (136-145); eGFR For African Americans > 60 (> 60); eGFR For Non-African Americans 54 (> 60)
[2018-11-23 09:05] LABS: Acetaminophen < 10 mcg/mL (10-20); Salicylate < 2.5 mg/dL (15.0-30.0)
[2018-11-23 11:29] VITALS: BP 104/66
[2018-11-23] MEDS ORDERED: SUMAtriptan succinate 50 MG TABLET PO PRN ×2 (13:22→14:15)
[2018-11-24] MEDS ORDERED: Famotidine 20 MG TABLET PO SCH (07:30)
[2018-11-24] MEDS ORDERED: Aspirin Enteric Coated 81 MG Tablet PO SCH (09:00)
[2018-11-24] MEDS ORDERED: clonazePAM 0.5 MG TABLET PO SCH (09:00)
[2018-11-24] MEDS ORDERED: TRIMETHOPRIM 100 MG PO SCH (09:00)
== END 2018-11-23 15:49 | disposition home or self-care (01) ==
LOC: 3BNU 14:38 → EMEROOARM 14:38 → SUATTDRO 18:27 → 3BNU 20:52
PROVIDERS: ADMIT Internal Medicine; ATTEND Internal Medicine